=== PATIENT | female | born 1965 | race Caucasian/White ===

== ENCOUNTER 2018-02-12 02:27 | Emergency (ER) | payer OTHER, MEDICARE ==
[~2018-02-12] VITALS: Ht 172.7 cm; Wt 81.6 kg
[~2018-02-12 02:27] MED LIST: HYDRPOW88
[2018-02-12 03:58] LABS: Basophils # (auto) 0 uL; Basophils % (auto) 0.4 % (0.0-2.0); Eosinophils # (auto) 0.1 uL; Eosinophils % (auto) 2.6 % (0.0-7.0); Hematocrit 44.6 % (36.0-46.0); Hemoglobin 15.4 g/dL (12.2-16.2); Lymphocytes # (auto) 0.4 uL; Mean Corpuscular Hemoglobin 37.6 pg (28.0-32.0); Mean Corpuscular Hgb Conc. 34.5 g/dL (32.0-36.0); Mean Corpuscular Volume 108.8 fL (80.0-100.0); Monocytes # (auto) 0.2 uL; Neutrophils # (auto) 2.8 uL; Nucleated Red Blood Cells % 0.4 %; Platelet Count (auto) 57 10^3/uL (140-450); Red Cell Distribution Width 18.2 % (11.8-14.3); White Blood Cell 3.6 10^3/uL (4.4-10.8)
[2018-02-12 04:21] LABS: Albumin 1.6 g/dL (3.4-5.0); Calcium 7.5 mg/dL (8.5-10.1); Potassium 3.7 mmol/L (3.5-5.1)
[2018-02-12 04:24] LABS: BUN/Creatinine Ratio 9.3
[2018-02-12 04:26] LABS: Bilirubin, Total 8.2 mg/dL (0.2-1.0); Total Protein 7.3 g/dL (6.4-8.2)
[2018-02-12 08:51] LABS: Urine Bacteria NONE SEEN /hpf (None Seen); Urine Blood TRACE /uL (Negative); Urine Mucus MANY (None Seen); Urine Specific Gravity 1.027 (1.001-1.035); Urine WBC 2 /hpf (0 - 5)
[2018-02-12] MEDS ORDERED: METOCLOPRAMIDE HCL 5MG/ml INJ 2ml VIAL IV ONE (09:00)
[2018-02-12] MEDS ORDERED: MORPHINE SULFATE 4 MG/ML SYR/VIAL IV ONE (09:00)
[2018-02-12 09:57] LABS: Alcohol, Urine < 3.0 mg/dL (0-5); Amphetamine Screen, Urine NEGATIVE (NEGATIVE); Barbiturate Scree,Urine NEGATIVE (NEGATIVE); Benzodiazephine Screen, Urine NEGATIVE (NEGATIVE); Cannabinoid Screen, Urine NEGATIVE (NEGATIVE); Cocaine Screen, Urine NEGATIVE (NEGATIVE); Opiate Scree,Urine NEGATIVE (NEGATIVE); Phencyclidine Screen, Urine NEGATIVE (NEGATIVE)
[2018-02-12 10:31] VITALS: BP 107/52
== END 2018-02-12 11:37 | disposition home or self-care (01) ==
LOC: EDBD 02:27 → EDSEX 02:27 → ER 02:27
DX: K70.31 Alcoholic cirrhosis of liver with ascites (principal); E11.9 Type 2 diabetes mellitus without complications; I10 Essential (primary) hypertension; F17.210 Nicotine dependence, cigarettes, uncomplicated; Z88.2 Allergy status to sulfonamides
CPT/HCPCS: 36415; 74176; 80053; 80307; 81001; 82150; 83690; 85025; 94761; 96374; 96375; 99285; J2270; J2765

== ENCOUNTER 2018-02-14 18:57 | Emergency (ER) | payer OTHER, MEDICARE ==
[~2018-02-14] VITALS: Ht 172.7 cm; Wt 90.7 kg
[2018-02-14 19:17] VITALS: BP 106/61
[2018-02-14 20:34] LABS: White Blood Cell 8.3 10^3/uL (4.4-10.8)
[2018-02-14 20:35] LABS: Hematocrit 42.7 % (36.0-46.0); Hemoglobin 15.3 g/dL (12.2-16.2); Mean Corpuscular Hemoglobin 38.5 pg (28.0-32.0); Mean Corpuscular Hgb Conc. 35.7 g/dL (32.0-36.0); Mean Corpuscular Volume 107.8 fL (80.0-100.0); Platelet Count (auto) 49 10^3/uL (140-450); Red Blood Cells 3.97 10^6/uL (4.0-5.20); Red Cell Distribution Width 17.5 % (11.8-14.3)
[2018-02-14 20:43] LABS: Albumin 1.4 g/dL (3.4-5.0); Calcium 7.8 mg/dL (8.5-10.1); Potassium 3.6 mmol/L (3.5-5.1)
[2018-02-14 20:47] LABS: BUN/Creatinine Ratio 14.6; Bilirubin, Total 10.9 mg/dL (0.2-1.0)
[2018-02-14 21:10] LABS: Basophils % (manual) 0 (0.0-2.0); Blast Cells 0; Eosinophils % (manual) 0 (0-7); Metamyelocytes % 0; Myelocytes % 0; Promyelocytes % 0; Reactive Lymphocytes 0
[2018-02-14 21:13] LABS: Band Neutrophils % (manual) 13; Lymphocytes % (manual) 9 (10.0-50.0); Monocytes % (manual) 13 (0-12)
== END 2018-02-14 20:48 | disposition left against medical advice (07) ==
LOC: ER 18:57
DX: M79.605 Pain in left leg (principal); M79.604 Pain in right leg; Z53.21 Procedure and treatment not carried out due to patient leaving prior to being seen by health care provider
CPT/HCPCS: 36415; 80053; 85007; 85027

== ENCOUNTER 2018-02-15 22:42 | Inpatient (IN) | payer OTHER, MEDICARE ==
[~2018-02-15] VITALS: Ht 162.6 cm; Wt 94.2 kg
[2018-02-15] MEDS ORDERED: ONDANSETRON HCL 4 MG/2 ML VIAL IV ONE (23:15)
[2018-02-15] MEDS ORDERED: MORPHINE SULFATE 4 MG/ML SYR/VIAL IV ONE (23:15)
[2018-02-15 23:37] LABS: Albumin 1.3 g/dL (3.4-5.0); Calcium 7.6 mg/dL (8.5-10.1); Magnesium 1.9 mg/dL (1.6-2.6); Potassium 3.5 mmol/L (3.5-5.1)
[2018-02-15 23:42] LABS: Bilirubin, Total 11.7 mg/dL (0.2-1.0)
[2018-02-16] VITALS (8 sets, daily range): BP systolic 105–147; BP diastolic 72–81
[2018-02-16 00:47] LABS: Lactic Acid w/Reflex 9.2 mmol/L (0.4-2.0)
[2018-02-16] MEDS ORDERED: NOREPINEPHRINE 8 MG/250ML KIT 250 ML IV ONE (00:53)
[2018-02-16 00:55] LABS: Hemoglobin 14.3 g/dL (12.2-16.2); Platelet Count (auto) 60 10^3/uL (140-450)
[2018-02-16 00:57] LABS: Hematocrit 42.8 % (36.0-46.0); Mean Corpuscular Hemoglobin 37.4 pg (28.0-32.0); Mean Corpuscular Hgb Conc. 33.3 g/dL (32.0-36.0); Mean Corpuscular Volume 112.1 fL (80.0-100.0); Red Blood Cells 3.81 10^6/uL (4.0-5.20); Red Cell Distribution Width 18.1 % (11.8-14.3)
[2018-02-16 01:00] LABS: Basophils % (manual) 0 (0.0-2.0); Blast Cells 0; Metamyelocytes % 0; Myelocytes % 0; Promyelocytes % 0; Reactive Lymphocytes 0
[2018-02-16] MEDS: NOREPINEPHRINE 8 MG/250ML KIT 250 ML IV SCH ×2 (01:10→16:39)
[2018-02-16 01:31] LABS: Band Neutrophils % (manual) 22; Eosinophils % (manual) 1 (0-7); Lymphocytes % (manual) 5 (10.0-50.0); Monocytes % (manual) 13 (0-12)
[2018-02-16] MEDS ORDERED: SODIUM CHLORIDE 0.9% 2,300 ML IV ONE (02:00)
[2018-02-16] MEDS ORDERED: VANCOMYCIN 1GM/250ML 250 ML IV ONE (02:00)
[2018-02-16] MEDS ORDERED: HYDROcodone-ACET 10/325MG TAB PO ONE (02:00)
[2018-02-16] MEDS ORDERED: cefTRIAXone 1GM/50ML D5W 50 ML IV ONE (02:00)
[2018-02-16] MEDS ORDERED: DEXTROSE 50% SYRINGE 50 ML IV ONE (02:06)
[2018-02-16] MEDS ORDERED: SODIUM BICARBONATE 8.4 % INJ 50ML VIAL IV ONE (03:00)
[2018-02-16] MEDS ORDERED: SODIUM BICARBONATE 8.4% INJ 50ML SYRINGE ONE (03:08)
[2018-02-16] MEDS ORDERED: VANCOMYCIN PER PHARMACY 0 MG IV SCH (03:15)
[2018-02-16] MEDS ORDERED: NITROGLYCERIN 0.4 MG SL TAB SL PRN (03:15)
[2018-02-16] MEDS ORDERED: ONDANSETRON HCL 4 MG/2 ML VIAL IV PRN (03:15)
[2018-02-16] MEDS ORDERED: MORPHINE SULFATE 4 MG/ML SYR/VIAL IV PRN (03:15)
[2018-02-16] MEDS ORDERED: DEXTROSE (50%) 50ML SYRG IV ONE (03:30)
[2018-02-16] MEDS ORDERED: SODIUM CHLORIDE 0.9% 500 ML IV ONE (03:30)
[2018-02-16] MEDS ORDERED: SODIUM CHLORIDE 0.9% 1,000 ML IV SCH (03:35)
[2018-02-16] MEDS: InsuLIN REG 1unit/0.01ml Soln (100units/ml) SC SCH ×4 (04:00→16:00)
[2018-02-16] MEDS: ACCU-CHEK COMFORT CURVE STRIP VI SCH ×6 (04:23→17:41)
[2018-02-16 04:58] LABS: INR 3.35 (0.9-1.15); Partial Thromboplastin Time 47.1 sec (23.78-33.04); Prothrombin Time 33.5 sec (9.27-12.13)
[2018-02-16] MEDS ORDERED: PIPERACILLIN-TAZOB 2.25GM 50 ML IV SCH ×2 (06:00→18:00)
[2018-02-16 07:56] LABS: Lactic Acid w/Reflex 9.7 mmol/L (0.4-2.0)
[2018-02-16] MEDS ORDERED: RIFAXIMIN 550 MG TAB PO SCH (10:00)
[2018-02-16] MEDS ORDERED: PANTOPRAZOLE 40 MG TAB PO SCH (10:00)
[2018-02-16] MEDS ORDERED: LACTULOSE 20Gm/30ML SOLN PO SCH (10:00)
[2018-02-16 10:46] LABS: Hematocrit 42.7 % (36.0-46.0); Hemoglobin 13.6 g/dL (12.2-16.2); Mean Corpuscular Hemoglobin 36.8 pg (28.0-32.0); Mean Corpuscular Hgb Conc. 31.9 g/dL (32.0-36.0); Mean Corpuscular Volume 115.3 fL (80.0-100.0); Platelet Count (auto) 42 10^3/uL (140-450); Red Cell Distribution Width 19.4 % (11.8-14.3); White Blood Cell 11.6 10^3/uL (4.4-10.8)
[2018-02-16 11:00] LABS: BUN/Creatinine Ratio 12.2; Calcium 6.3 mg/dL (8.5-10.1)
[2018-02-16 11:03] LABS: Bilirubin, Total 10.2 mg/dL (0.2-1.0); Total Protein 4.9 g/dL (6.4-8.2)
[2018-02-16] MEDS ORDERED: fentaNYL Drip 2500mCg/250mlNS 250 ML IV SCH (11:16)
[2018-02-16] MEDS ORDERED: MIDAZOLAM DRIP 50 mg/50mL 50 ML IV SCH (11:16)
[2018-02-16 11:24] LABS: Basophils % (manual) 0 (0.0-2.0); Blast Cells 0; Eosinophils % (manual) 0 (0-7); Metamyelocytes % 0; Myelocytes % 0; Promyelocytes % 0; Reactive Lymphocytes 0
[2018-02-16] MEDS ORDERED: MIDAZOLAM DRIP 50 mg/50mL 50 ML IV ONE (11:26)
[2018-02-16] MEDS ORDERED: ETOMIDATE (2MG/ML) 20ML VIAL IV ONE (11:26)
[2018-02-16] MEDS ORDERED: PHYTONADIONE (VIT K)10 MG/ML 1ML VIAL SUBCUT ONE (11:30)
[2018-02-16] MEDS ORDERED: CLINDAMYCIN 600MG IV 50 ML IV ONE (11:30)
[2018-02-16] MEDS ORDERED: PANTOPRAZOLE 40 MG/10 ML VIAL IV ONE (11:30)
[2018-02-16] MEDS ORDERED: PHENYLEPHRINE IV 250 ML IV ONE ×4 (11:36→18:29)
[2018-02-16] MEDS: PHENYLEPHRINE INJ 20 MG in SODIUM CHL 0.9% 250 ML IV SCH ×3 (11:40→18:32)
[2018-02-16] MEDS ORDERED: ALBUMIN 25% 50 ML IV SCH (11:45)
[2018-02-16] MEDS ORDERED: SODIUM BICARBONATE 50ML VIAL 50 ML in SOD CHL 0.45% 1,000 ML IV SCH (12:00)
[2018-02-16] MEDS ORDERED: PHYTONADIONE (VIT K)10 MG/ML 1ML VIAL SUBCUT SCH (13:00)
[2018-02-16] MEDS ORDERED: VASOPRESSIN 50 UNITS in D5W 5% 247.5 ML IV SCH (13:15)
[2018-02-16 13:16] LABS: Band Neutrophils % (manual) 28; Lymphocytes % (manual) 5 (10.0-50.0); Monocytes % (manual) 12 (0-12)
[2018-02-16] MEDS: DEXTROSE (50%) 50ML SYRG IV PRN ×2 (13:33→16:41)
[2018-02-16 13:39] LABS: Hepatitis A Ab IgM Negative; Hepatitis B Core IgM Negative; Hepatitis B Surface Antigen Negative (Negative); Hepatitis C Antibody Negative (Negative)
[2018-02-16] MEDS ORDERED: DEXTROSE (50%) 50ML SYRG IV PRN (17:00)
[2018-02-16] MEDS ORDERED: SODIUM BICARBONATE IV SCH (17:00)
[2018-02-16] MEDS ORDERED: SOD CHLO IV SCH (17:00)
[2018-02-16] MEDS ORDERED: D5 IV SCH (17:00)
[2018-02-16] MEDS ORDERED: HYDROCORTISONE SOD SUCC 100 MG/2ML INJ VIAL IV ONE (17:00)
[2018-02-16] MEDS ORDERED: InsuLIN REG 1unit/0.01ml Soln (100units/ml) SC SCH ×2 (18:00)
[2018-02-16 18:33] LABS: Albumin 1.1 g/dL (3.4-5.0); Calcium 6.4 mg/dL (8.5-10.1)
[2018-02-16 18:37] LABS: BUN/Creatinine Ratio 10.2; Bilirubin, Total 9.1 mg/dL (0.2-1.0); Total Protein 4.4 g/dL (6.4-8.2)
[2018-02-16 19:21] LABS: Potassium 6.3 mmol/L (3.5-5.1)
[2018-02-16] MEDS ORDERED: CLINDAMYCIN 600MG IV 50 ML IV SCH (20:00)
[2018-02-16] MEDS ORDERED: HYDROCORTISONE SOD SUCC 100 MG/2ML INJ VIAL IV SCH (22:00)
[2018-02-17] MEDS ORDERED: VANCOMYCIN 1GM/250ML 250 ML IV SCH (06:00)
[2018-02-17] MEDS ORDERED: PANTOPRAZOLE 40 MG/10 ML VIAL IV SCH (10:00)
== END 2018-02-16 21:25 | DRG 871 ==
LOC: EDUNIT# 22:42 → EDBD 22:42 → ER 22:46 → TELE 02-16 03:35 → ICU WEST 02-16 07:13
PROVIDERS: ADMIT Nurse Practitioner; ATTEND Internal Medicine
PROC: 02HV33Z Insertion of Infusion Device into Superior Vena Cava, Percutaneous Approach (ICD-10-PCS; principal; 2018-02-16)
PROC: 5A1935Z Respiratory Ventilation, Less than 24 Consecutive Hours (ICD-10-PCS; 2018-02-16)
PROC: 0BH17EZ Insertion of Endotracheal Airway into Trachea, Via Natural or Artificial Opening (ICD-10-PCS; 2018-02-16)
DX: A40.3 Sepsis due to Streptococcus pneumoniae (principal); K76.7 Hepatorenal syndrome; M72.6 Necrotizing fasciitis; R65.21 Severe sepsis with septic shock; J96.00 Acute respiratory failure, unspecified whether with hypoxia or hypercapnia; E43 Unspecified severe protein-calorie malnutrition; J98.11 Atelectasis; L03.116 Cellulitis of left lower limb; N17.9 Acute kidney failure, unspecified; D68.9 Coagulation defect, unspecified; E87.1 Hypo-osmolality and hyponatremia; E11.649 Type 2 diabetes mellitus with hypoglycemia without coma; E86.0 Dehydration; F17.210 Nicotine dependence, cigarettes, uncomplicated; I70.0 Atherosclerosis of aorta; I10 Essential (primary) hypertension; K57.30 Diverticulosis of large intestine without perforation or abscess without bleeding; K70.30 Alcoholic cirrhosis of liver without ascites; K72.90 Hepatic failure, unspecified without coma; Z82.49 Family history of ischemic heart disease and other diseases of the circulatory system; F10.20 Alcohol dependence, uncomplicated; Z66 Do not resuscitate; K72.10 Chronic hepatic failure without coma; Z68.35 Body mass index [BMI] 35.0-35.9, adult; Z90.49 Acquired absence of other specified parts of digestive tract; Z88.2 Allergy status to sulfonamides; Z88.8 Allergy status to other drugs, medicaments and biological substances
CPT/HCPCS: 36415; 36600; 71045; 73700; 74176; 80053; 80074; 82140; 82805; 82962; 83036; 83605; 83735; 84484; 85007; 85027; 85610; 85730; 87040; 87070; 87077; 87081; 87186; 87205; 93926; 93971; 94002; 96365; 96367; C9113; G0378; J0696; J2250; J2405; J2543; J3430; J3490; J7042; J7060